=== PATIENT | female | born 1995 | race Two or more races ===

== ENCOUNTER → 2017-01-09 | Outpatient (CLI) | payer MEDICAID ==
[~2017-01-09] VITALS: Ht 160 cm; Wt 108.9 kg
== END | disposition home or self-care (01) ==
LOC: Rad HDHVI 13:58
PROVIDERS: ATTEND Internal Medicine Cardiovascular Disease
DX: Z01.810 Encounter for preprocedural cardiovascular examination (principal); R00.1 Bradycardia, unspecified; R94.31 Abnormal electrocardiogram [ECG] [EKG]; F17.210 Nicotine dependence, cigarettes, uncomplicated; Z82.49 Family history of ischemic heart disease and other diseases of the circulatory system
CPT/HCPCS: 93017